=== PATIENT | male | born 2000 | race African-American/Black ===

== ENCOUNTER 2024-03-18 14:19 | Emergency (ER) | payer BC, SELFPAY ==
[2024-03-18 14:20] VITALS: BP 144/90
[2024-03-18 14:44] LABS: % Eosinophils 3.2 % (0-6); % Immature Granulocytes 0.2 % (0-0.5); % Monocytes 9.7 % (1.7-9.3); % Neutrophils 61.9 % (42.2-75.2); Absolute Basophils 0.1 10^3/uL (0-0.2); Absolute Eosinophils 0.2 10^3/uL (0-0.7); Absolute Lymphocytes 1.2 10^3/uL (1.2-3.4); Absolute Monocytes 0.5 10^3/uL (0.1-0.6); Absolute Neutrophils 3.1 10^3/uL (1.4-6.5); Hematocrit 39.6 % (39.0-52.0); Hemoglobin 13.4 g/dL (13.0-18.0); Mean Corp Hgb Conc. 33.8 g/dL (33.0-37.0); Mean Corpuscular Hgb 29.4 pg (27.0-31.0); Mean Corpuscular Volume 86.8 fL (80.0-94.0); Mean Platelet Volume 10.7 fL (7.4-10.4); Nucleated Red Blood Cells % 0 % (-); Platelet Count 276 10^3/uL (130-400); Red Blood Cell Count 4.56 10^6/uL (4.70-6.10); Red Cell Dist. Width 12.5 % (11.5-14.5); White Blood Cell Count 5.1 10^3/uL (4.8-10.8)
[2024-03-18 15:03] LABS: ALT (SGPT) 23 U/L (0-50); AST (SGOT) 23 U/L (17-59); Albumin 4.9 g/dl (3.5-5.0); Alkaline Phosphatase 52 U/L (38-126); Blood Urea Nitrogen 10 mg/dl (9-20); Carbon Dioxide 27 mmol/L (22-30); Chloride 105 mmol/L (98-107); Glucose 131 mg/dl (70-99); Potassium 4.1 mmol/L (3.5-5.1); Sodium 140 mmol/L (135-145); Total Bilirubin 0.7 mg/dl (0.2-1.3); Total Protein 7.3 g/dl (6.3-8.2); eGFR > 60.00
--- NOTE | 2024-03-18 15:27 | ED.GENMED ---
History of Present Illness
General
Chief Complaint: Fatigue
Source: patient
Exam Limitations: none
Time Seen by Provider: 03/18/24 15:13
Nursing documentation reviewed up to this point in time: agreed with
History of Present Illness
History of Present Illness:
Patient is a 23-year-old healthy male who presents to the ER for evaluation. Patient reports starting Sunday night, 2 nights ago he started to feel fatigued and weak lightheaded little dizzy. He reports he has some muscle aches but denies any
joint pain. He denies any fever or chills. He denies any abdominal pain nausea vomiting. He thought maybe he was getting sick but did not actually get sick. He denies any nasal congestion runny nose sore throat cough fever chills. He denies any
abdominal pain nausea vomiting. He was even concerned he may have an STD though he denies any symptoms. He is sexually active with 1 partner and denies any penile discharge.
He did go to urgent care and was tested for COVID and was negative.
Review of Systems
Review of Systems
Allergies reviewed?: Yes
All Other Systems: ROS reviewed and negative except as documented in HPI and ROS
Constitutional: Reports fatigue; Denies fever or chills
EENT: Reports no symptoms
Respiratory: Reports no symptoms
Cardiac: Reports no symptoms
ABD/GI: Reports no symptoms
: Reports no symptoms; Denies dysuria, flank pain, incontinence, urgency or discharge
Musculoskeletal: Reports no symptoms
Skin: Reports no symptoms
Neurological: Reports no symptoms
Hematologic/Lymphatic: Reports no symptoms
Psychiatric: Reports no symptoms
Phy Exam
General Physical Exam
General Presentation: no apparent distress
General age: appears stated age
General Skin: warm and dry
General Habitus: normal
General Mental: alert
General Hydration: appears well hydrated
Cardiovascular Exam
Cardiovascular Exam: regular rate/rhythm, no murmur and normal peripheral pulses
Pulmonary Exam
Pulmonary Exam: lungs clear and no respiratory distress
Gastrointestinal Exam
Gastrointestinal Exam: non tender and soft
Neurological Exam
Neurological Exam: alert and oriented x3
Musculoskeletal Exam
Musculoskeletal Exam: full ROM
Skin Exam
Skin Exam: normal color and warm/dry
Psychiatric Exam
Psychiatric Exam: normal mood/affect
Course
Orders/Labs/Results
Orders:
Orders
03/18/24 14:34
Complete Blood Count/With Diff Urgent
Comprehensive Metabolic Panel Urgent
Free T4 Urgent
Lyme Progressive Urgent
Comment: ADD ON
TSH Reflex To Free T4 Urgent
Comment: ADD ON
03/18/24 14:39
Chlamydia/GC by PCR Urgent
CYNTHIA Source: Urine
Specimen Description:
Source:: URINE
Date Specimen was Collected: 03/18/24
Time Specimen was Collected: 14:26
03/18/24 17:13
Add On- LAB Urgent
Tests Added?: lyme
03/18/24 17:37
Add On- LAB Urgent
Tests Added?: tsh with reflexive t4
03/18/24 17:40
Iohexol [Omnipaque] See Protocol PO NOW STA
Abnormal Lab Results
03/18/24
14:34
RBC 4.56 L 10^6/uL
(4.70-6.10)
MPV 10.7 H fL
(7.4-10.4)
Monocytes % 9.7 H %
(1.7-9.3)
Glucose 131 H mg/dl
(70-99)
TSH (Reflex) 0.46 L uIU/ml
(0.47-4.68)
03/18/24 14:34
03/18/24 14:34
Vital Signs
Initial and Last Documented VS:
Initial Vital Signs
Temp Pulse Resp BP Pulse Ox
98.8 F 80 18 144/90 97
03/18/24 14:20 03/18/24 14:20 03/18/24 14:20 03/18/24 14:20 03/18/24 14:20
Last Documented Vital Signs
Temp Pulse Resp BP Pulse Ox
98.8 F 58 18 145/79 98
03/18/24 14:20 03/18/24 19:06 03/18/24 19:06 03/18/24 19:06 03/18/24 19:06
Estimating Manager consulted with Physician
Estimating Manager consulted with physician?: Yes
Name of Physician Consulted: Cortney
MDM/Problems Addressed
MDM/Problems Addressed:
Patient is a healthy 23 male who complains of generalized fatigue over the past couple days. He denies any fever or chills. He felt that he was getting sick but did not develop any other symptoms. He denies any fever chills nausea vomiting
decreased appetite. He denies any runny nose cough sore throat. Even though he had no symptoms he contemplated if that if he has an STD however he is with the same partner and denies any discharge. He presents awake alert no acute distress he
denies any chest pain shortness of breath he is nontoxic afebrile normal white count stable hemoglobin normal electrolytes. He denies any actual drug pain he complains of some muscle pain but Lyme still ordered. Will check Lyme and plan for
discharge home with outpatient family doctor for further evaluation patient symptoms though nothing concerning on today's workup here in the ER.
*Critical Care Note
Total Time (30-74mins, 75-104mins- exclusive of procedures): Not Applicable
ED Attending Note
-
Portions of this chart may have been created with voice recognition software.� Occasional wrong word or��sound alike� substitutions may have occurred due to the inherent limitations of voice recognition software.
Discharge Plan
Departure
Patient Disposition: Home (Routine Discharge)
Date of Disposition: 03/18/24
Time of Disposition: 18:04
Patient with high blood pressure during this ER visit?: Yes
Condition: Fair
Covid-19: Not Applicable
Discharge Problem:
Fatigue
Instructions: Fatigue (DC), BLOOD PRESSURE
Referrals:
NONE,* [Family Provider] -
Activity Restrictions/Additional Instructions:
Follow-up with your family doctor in the next several days further evaluation of your symptoms. As discussed you will be notified of if Lyme testing is positive. Return if any worsening of symptoms.
Interventions
Interventions:
*Risk Screen - Suicide Last Done: 03/18/24 14:20
*General Assessment Last Done: 03/18/24 14:20
*Neglect/Abuse Screening Last Done: 03/18/24 14:20
*Nursing Disposition Last Done: 03/18/24 19:06
Discharge Date and Time
Discharge Date/Time: 03/18/24 19:07
Print Language: FRISIAN
[2024-03-18 17:37] VITALS: BP 145/79
[2024-03-18 18:31] LABS: TSH Reflex To Free T4 0.46 uIU/ml (0.47-4.68)
[2024-03-18 19:00] LABS: Free T4 1.09 ng/dl (0.78-2.19)
[2024-03-18 19:06] VITALS: BP 145/79
[2024-03-20 16:01] LABS: Lyme Antibody Screen, EIA Negative (Negative)
== END 2024-03-18 19:07 | disposition home or self-care (01) ==
LOC: EMR 14:19
PROVIDERS: Emergency Medicine; EMERGENCY PHYSICIAN Emergency Medicine
DX: R53.83 Other fatigue (principal)
CPT/HCPCS: 99283; 80053; 84439; 84443; 85025; 86618; 87491; 87591